=== PATIENT | male | born 2000 | race Caucasian/White ===

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

== ENCOUNTER 2024-06-28 12:34 | Outpatient (CLI) | payer MEDICARE, BC ==
[2024-06-28 19:50] LABS: BASOPHILS % (AUTO) 0.5 %; EOSINOPHILS # (AUTO) 0.1 10^3/uL (0.0-0.7); EOSINOPHILS % (AUTO) 1.5 %; HCT - HEMATOCRIT 51.1 % (42.0-52.0); HGB - HEMOGLOBIN 17.3 g/dL (14.0-18.0); LYMPHOCYTES # (AUTO) 2.3 10^3/uL (1.5-3.5); LYMPHOCYTES % (AUTO) 30.6 %; MEAN CORPUSCULAR HEMOGLOBIN 29.7 pg (27.0-31.0); MEAN CORPUSCULAR HGB CONC 33.9 g/dL (32.0-36.0); MEAN CORPUSCULAR VOLUME 87.7 fL (80.0-94.0); MEAN PLATELET VOLUME 9.3 fL (7.4-11.4); MONOCYTES # (AUTO) 0.6 10^3/uL (0.0-1.0); MONOCYTES % (AUTO) 8.5 %; NEUTROPHILS # (AUTO) 4.4 10^3/uL (1.5-6.6); NEUTROPHILS % (AUTO) 58.6 %; PLT - PLATELET COUNT 267 10^3/uL (130-450); RED BLOOD COUNT 5.83 10^6/uL (4.70-6.10); RED CELL DISTRIBUTION WIDTH 13.1 % (12.0-15.0); WHITE BLOOD COUNT 7.4 x10^3/uL (4.8-10.8)
[2024-06-28 20:03] LABS: ALBUMIN 4.9 g/dL (3.2-5.5); ALBUMIN/GLOBULIN RATIO 1.9 (1.0-2.2); BILIRUBIN,TOTAL 1.1 mg/dL (0.2-1.0); CREATININE 0.9 mg/dL (0.6-1.3); POTASSIUM 3.6 mmol/L (3.5-4.5); TOTAL PROTEIN 7.5 g/dL (6.4-8.9)
[2024-06-28 20:15] LABS: THYROID STIMULATING HORMONE 1.97 uIU/mL (0.34-5.60)
[2024-06-28 21:35] LABS: ESTIMATED AVERAGE GLUCOSE 74 mg/dL (70-100); HEMOGLOBIN A1c% 4.2 % (4.27-6.07)
== END 2024-06-28 12:35 | disposition home or self-care (01) ==
LOC: LAB.S 12:34
PROVIDERS: ATTEND Registered Nurse
DX: R23.1 Pallor (principal); R20.2 Paresthesia of skin; H93.A1 Pulsatile tinnitus, right ear; I49.3 Ventricular premature depolarization; R00.2 Palpitations
CPT/HCPCS: 36415; 80053; 82607; 82670; 83036; 84403; 84443; 85025